=== PATIENT | female | born 1960 | race Caucasian/White ===

== ENCOUNTER → 2016-04-26 | Outpatient (CLI) | payer BC ==
[~2016-04-26] MED LIST: FLUOXETINE20 MG PO; LIPITOR40 MG PO; PRILOSEC OTC20 MG PO; SYNTHROID 0.00.05 MG PO
[2016-04-26 13:24] LABS: HEMOGLOBIN 13.4 g/dL (12.2-16.2); LYMPH # 1.5 K/mm3 (0.7-4.5); LYMPH % 29.4 % (10-50.0)
[2016-04-26 13:39] LABS: BUN 9 mg/dL (7-18)
[2016-04-26 13:41] LABS: GFR (ESTIMATED) 87 ML/MIN (59-)
[2016-04-30 03:37] LABS: 1,25-Dihydroxy, Vitamin D-2 16 pg/mL (.); 1,25-Dihydroxy, Vitamin D-3 29 pg/mL (.); Total 1,25-Dihydroxy,Vitamin D 45 pg/mL (.)
== END ==
LOC: CARL-LAB 11:43
PROVIDERS: Internal Medicine Adolescent Medicine
DX: E03.9 Hypothyroidism, unspecified (principal); E78.5 Hyperlipidemia, unspecified; E66.01 Morbid (severe) obesity due to excess calories; E55.9 Vitamin D deficiency, unspecified; Z98.84 Bariatric surgery status